=== PATIENT | female | born 1990 | race Caucasian/White ===

== ENCOUNTER 2018-02-04 10:50 | Emergency (ER) | payer SELFPAY ==
--- NOTE | 2018-02-04 13:13 | EDM.PDOCBH ---
ED HPI GENERAL MEDICAL PROBLEM - General Chief Complaint: Drug or Alcohol Abuse Stated Complaint: HEROINE DETOX SENT BY [facility] Time Seen by Provider: 02/04/18 12:08 Source of Information: Reports: Patient History Limitations: Reports: No Limitations - History of Present Illness INITIAL COMMENTS - FREE TEXT/NARRATIVE: 28-year-old female presents for a medical clearance prior to going to [facility]. Plan is that she will go to the [facility] today for treatment from [facility]. 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 Last methamphetamine use was 1 week ago. Last heroin use was Thursday night. Reports that she previously she used to inject the heroin and methamphetamine. Since she 's had multiple abscesses from these and has had multiple I&D's. Mom states that she is giving her sublingual Suboxone for withdrawals. She has been giving her the Suboxone twice a day. They acquired this off the street and no one is prescribing this to her. She is also taking Xanax for anxiety muscle cramps. Last dose of Suboxone was at 1830 last night. Last dose of Xanax was this morning. Patient is from [place], [place]. Her mom is brought her up here for help with her heroin and methamphetamine abuse. Patient states that she has an IUD in place. She was states that she was told one month ago she was seen at a clinic in [place] and was told she had a positive hCG. She has never had any follow-up with this. No vaginal bleeding or abdominal pain. Patient is denying any current pain. No chest pain, abdominal pain, vaginal bleeding, fevers, chills, nausea or vomiting. She states that she has some shortness of breath. Has not yet established with a primary care provider. No history of any chronic past medical conditions. - Related Data Allergies Allergy/AdvReac Type Severity Reaction Status Date / Time No Known Allergies Allergy Verified 02/04/18 11:03 Home Meds: Home Meds LORazepam [Ativan] 1 mg PO Q8H #12 tab 02/04/18 [Rx] cloNIDine [Catapres] 0.1 mg PO Q12HR #6 tab 02/04/18 [Rx] Past Medical History - Past Health History Medical/Surgical History: Denies Medical/Surgical History Social & Family History - Tobacco Use Smoking Status *Q: Never Smoker - Recreational Drug Use Recreational Drug Use: Yes Drug Use in Last 12 Months: Yes Recreational Drug Type: Reports: Heroin, Methamphetamine ED ROS GENERAL - Review of Systems Review Of Systems: See Below Constitutional: Denies: Fever, Chills Respiratory: Reports: Shortness of Breath ("some" ) Cardiovascular: Denies: Chest Pain GI/Abdominal: Denies: Abdominal Pain, Nausea, Vomiting : Reports: Other (denies any vaginal bleeding) ED EXAM, BEHAVIORAL HEALTH - Physical Exam Exam: See Below Exam Limited By: No Limitations General Appearance: Alert, WD/WN, No Apparent Distress Respiratory/Chest: No Respiratory Distress, Lungs Clear, Normal Breath Sounds Cardiovascular: Normal Peripheral Pulses, Regular Rate, Rhythm, No Murmur GI/Abdominal: Normal Bowel Sounds, Soft, Non-Tender Extremities: Other (minor swelling to the bilateral hands) Neurological: Alert, Normal Mood/Affect, Normal Cognition Psychiatric: Alert, Normal Affect, Normal Cognition, Normal Mood Skin Exam: Warm, Normal color, Other (multiple scars from IV drug abuse, multiple scars from abscesses, scarring from IM heroin abuse) COURSE, BEHAVIORAL HEALTH COMP - Course Vital Signs: Last Vital Signs Temp 36.2 C 02/04/18 11:00 Pulse 100 02/04/18 11:00 Resp 17 02/04/18 11:00 BP 117/84 02/04/18 11:00 Pulse Ox 100 02/04/18 11:00 Orders, Labs, Meds: Active Orders 24 hr Category Date Time Status HEPATITIS PANEL, ACUTE [REF] Stat Lab 02/04/18 12:36 Ordered Laboratory Tests 02/04/18 02/04/18 02/04/18 Range/Units 11:15 11:15 11:50 WBC 5.57 (3.98-10.04) K/mm3 RBC 5.31 H (3.98-5.22) M/mm3 Hgb 12.9 (11.2-15.7) gm/L Hct 40.6 (34.1-44.9) % MCV 76.5 L (79.4-94.8) fl MCH 24.3 L (25.6-32.2) pg MCHC 31.8 L (32.2-35.5) g/dl RDW Std Deviation 42.9 (36.4-46.3) fL Plt Count 361 (182-369) K/mm3 MPV 9.0 L (9.4-12.3) fl Neut % (Auto) 36.4 (34.0-71.1) % Lymph % (Auto) 51.9 H (19.3-51.7) % Clay % (Auto) 8.8 (4.7-12.5) % Eos % (Auto) 1.8 (0.7-5.8) Baso % (Auto) 1.1 (0.1-1.2) % Neut # (Auto) 2.03 (1.56-6.13) K/mm3 Lymph # (Auto) 2.89 (1.18-3.74) K/mm3 Clay # (Auto) 0.49 H (0.24-0.36) K/mm3 Eos # (Auto) 0.10 (0.04-0.36) K/mm3 Baso # (Auto) 0.06 (0.01-0.08) K/mm3 Manual Slide Review Abnormal smear Sodium (136-145) mEq/L Potassium (3.5-5.1) mEq/L Chloride (98-107) mEq/L Carbon Dioxide (21-32) mEq/L Anion Gap (5-15) BUN (7-18) mg/dL Creatinine (0.55-1.02) mg/dL Est Cr Clr Drug Dosing mL/min Estimated GFR (MDRD) (>60) mL/min BUN/Creatinine Ratio (14-18) Glucose (74-106) mg/dL Calcium (8.5-10.1) mg/dL Total Bilirubin (0.2-1.0) mg/dL AST (15-37) U/L ALT (14-59) U/L Alkaline Phosphatase (46-116) U/L Total Protein (6.4-8.2) g/dl Albumin (3.4-5.0) g/dl Globulin gm/dL Albumin/Globulin Ratio (1-2) Urine HCG, Qual Negative (NEGATIVE) Urine Opiates Screen Negative (NEGATIVE) Ur Buprenorphine Scrn Presumptive positive H (NEGATIVE) Ur Oxycodone Screen Negative (NEGATIVE) Urine Methadone Screen Negative (NEGATIVE) Ur Propoxyphene Screen Negative (NEGATIVE) Ur Barbiturates Screen Negative (NEGATIVE) Ur Tricyclics Screen Presumptive positive H (NEGATIVE) Ur Phencyclidine Scrn Negative (NEGATIVE) Ur Amphetamine Screen Negative (NEGATIVE) U Methamphetamines Scrn Negative (NEGATIVE) U Benzodiazepines Scrn Presumptive positive H (NEGATIVE) U Cocaine Metab Screen Negative (NEGATIVE) U Marijuana (THC) Screen Presumptive positive H (NEGATIVE) Ethyl Alcohol (0.00) gm% 02/04/18 Range/Units 11:50 WBC (3.98-10.04) K/mm3 RBC (3.98-5.22) M/mm3 Hgb (11.2-15.7) gm/L Hct (34.1-44.9) % MCV (79.4-94.8) fl MCH (25.6-32.2) pg MCHC (32.2-35.5) g/dl RDW Std Deviation (36.4-46.3) fL Plt Count (182-369) K/mm3 MPV (9.4-12.3) fl Neut % (Auto) (34.0-71.1) % Lymph % (Auto) (19.3-51.7) % Clay % (Auto) (4.7-12.5) % Eos % (Auto) (0.7-5.8) Baso % (Auto) (0.1-1.2) % Neut # (Auto) (1.56-6.13) K/mm3 Lymph # (Auto) (1.18-3.74) K/mm3 Clay # (Auto) (0.24-0.36) K/mm3 Eos # (Auto) (0.04-0.36) K/mm3 Baso # (Auto) (0.01-0.08) K/mm3 Manual Slide Review Sodium 137 (136-145) mEq/L Potassium 3.7 (3.5-5.1) mEq/L Chloride 101 (98-107) mEq/L Carbon Dioxide 31 (21-32) mEq/L Anion Gap 8.7 (5-15) BUN 7 (7-18) mg/dL Creatinine 0.6 (0.55-1.02) mg/dL Est Cr Clr Drug Dosing 115.47 mL/min Estimated GFR (MDRD) > 60 (>60) mL/min BUN/Creatinine Ratio 11.7 L (14-18) Glucose 126 H (74-106) mg/dL Calcium 9.2 (8.5-10.1) mg/dL Total Bilirubin 0.3 (0.2-1.0) mg/dL AST 208 H (15-37) U/L ALT 245 H (14-59) U/L Alkaline Phosphatase 194 H (46-116) U/L Total Protein 8.4 H (6.4-8.2) g/dl Albumin 3.0 L (3.4-5.0) g/dl Globulin 5.4 gm/dL Albumin/Globulin Ratio 0.6 L (1-2) Urine HCG, Qual (NEGATIVE) Urine Opiates Screen (NEGATIVE) Ur Buprenorphine Scrn (NEGATIVE) Ur Oxycodone Screen (NEGATIVE) Urine Methadone Screen (NEGATIVE) Ur Propoxyphene Screen (NEGATIVE) Ur Barbiturates Screen (NEGATIVE) Ur Tricyclics Screen (NEGATIVE) Ur Phencyclidine Scrn (NEGATIVE) Ur Amphetamine Screen (NEGATIVE) U Methamphetamines Scrn (NEGATIVE) U Benzodiazepines Scrn (NEGATIVE) U Cocaine Metab Screen (NEGATIVE) U Marijuana (THC) Screen (NEGATIVE) Ethyl Alcohol 0.00 (0.00) gm% Re-Assessment/Re-Exam: 13:10 I spoke with [facility] human services. Plan will be to discharge her from the ER and she is to go directly to [facility] for admission. Warned she will have her ativan and clonidine counted upon her arrival. 15:00 [facility] has called. She presented to the [facility] bed in a timely fashion, however, she was there for about 10 minutes and decided to leave with her mother. [facility] did not allow her to take the ativan and clonidine that I prescribed. I agreed that she can not have this as long as she is not at the [facility]. Medical Clearance: 02/04/18 13:02 Patient is medically cleared to got to the [facility] for care. Informed of elevated liver enzymes. Hepatitis panel pending. Encouraged follow- up with family med. Discharge vs Psych Eval/Treatment:: 02/04/18 13:13 Will discharge with instructions to go directly to the [facility] after picking up ativan and clonidine. Departure - Departure Time of Disposition: 13:13 Disposition: DC/Tfer to In Rehab Fac 62 Condition: Fair Clinical Impression: Elevated transaminase level, Heroin abuse, Methamphetamine abuse - Discharge Information Prescriptions: cloNIDine [Catapres] 0.1 mg PO Q12HR #6 tab LORazepam [Ativan] 1 mg PO Q8H #12 tab Instructions: Finding Treatment for Addiction Referrals: PCP,None [Primary Care Provider] - Ashley Dykes MD [Physician] - Additional Instructions: Clonidine 1 tab 2 times a day for 3 days. Ativan 1 tab 3 times a day 2 days then twice a day for 3 days. Follow-up with family medicine as soon as you able to to further evaluate your elevated transaminase levels. Recommend Dr. Dykes at the [facility]. Call [phone] to schedule with her. If sure you're drinking plenty of fluids with the clonidine can lower your blood pressure. If you like to pursue Suboxone treatment; a list has Been provided for providers in the area. Please return to the ER if your symptoms change or worsen. - My Orders Last 24 Hours: My Active Orders 02/04/18 12:36 HEPATITIS PANEL, ACUTE [REF] Stat - Assessment/Plan Last 24 Hours: My Active Orders 02/04/18 12:36 HEPATITIS PANEL, ACUTE [REF] Stat
== END 2018-02-04 14:15 ==
LOC: JD.ED 10:50
DX: F15.10 Other stimulant abuse, uncomplicated (principal); F11.10 Opioid abuse, uncomplicated; R79.89 Other specified abnormal findings of blood chemistry
CPT/HCPCS: 36415; 80053; 80306; 81025; 85025; 99283; G0480; 80074; 99284

== ENCOUNTER 2018-06-22 14:33 | Emergency (ER) | payer SELFPAY ==
--- NOTE | 2018-06-22 16:09 | EDM.PDOC ---
ED HPI GENERAL MEDICAL PROBLEM - General Chief Complaint: [employer] Problem Stated Complaint: ? retained tampon Time Seen by Provider: 06/22/18 15:48 Source of Information: Reports: Patient History Limitations: Reports: No Limitations - History of Present Illness INITIAL COMMENTS - FREE TEXT/NARRATIVE: 28-year-old female presents for evaluation and treatment of possibly a retained tampon. Patient reports 2 days ago she started experiencing lower abdominal cramping. She also reports a strong vaginal odor and vaginal discharge. She states that she started her menstrual cycle 2 days ago. States that this menstrual cycle is like her normal menstrual cycle, not heavier than normal. She denies any dysuria, fevers, chills, nausea or vomiting. Patient questions if the tampon has been stuck for the last month, since her last menstrual cycle. Patient has an IUD in place, it is a 10 year IUD. Placed about 6 years . Patient is sexually active. Patient reports she has not had STD screening in several years. Lower Abdominal Pain Score (Numeric/FACES): 4 - Related Data Allergies Allergy/AdvReac Type Severity Reaction Status Date / Time No Known Allergies Allergy Verified 06/22/18 15:26 Home Meds: Home Meds Doxycycline [Vibramycin] 100 mg PO BID #20 cap 06/22/18 [Rx] Past Medical History - Past Health History Medical/Surgical History: Denies Medical/Surgical History Psychiatric History: Reports: Addiction Other Psychiatric History: Meth and heroin past use - Past Surgical History GI Surgical History: Reports: Appendectomy Female Surgical History: Reports: Breast Reduction Social & Family History - Family History Family Medical History: Noncontributory - Tobacco Use Smoking Status *Q: Never Smoker - Recreational Drug Use Recreational Drug Use: Yes Drug Use in Last 12 Months: Yes Recreational Drug Type: Reports: Heroin, Methamphetamine Recreational Drug Use Frequency: Daily Recreational Drug Last Use: 06/04/18 ED ROS GENERAL - Review of Systems Review Of Systems: See Below Constitutional: Denies: Fever, Chills GI/Abdominal: Denies: Nausea, Vomiting : Reports: Pain (reports pelvic cramping, lower abdominal cramping), Other ( reports vaginal discharge, reports a foul vaginal odor). Denies: Dysuria ED EXAM, RENAL/ - Physical Exam Exam: See Below Exam Limited By: No Limitations General Appearance: Alert, WD/WN, No Apparent Distress Respiratory/Chest: No Respiratory Distress (Female) Exam: Other (cervix is swollen, friable, irritated; IUD strings not visualized; retained tampon removed, found next to cervix ) Neurological: Alert, Oriented, Normal Cognition Psychiatric: Normal Affect, Normal Mood Skin Exam: Warm, Dry, Normal Color Course - Vital Signs Last Recorded V/S: Last Vital Signs Temp 98.0 F 06/22/18 15:23 Pulse 111 H 06/22/18 15:23 Resp 16 06/22/18 15:23 BP 124/79 06/22/18 15:23 Pulse Ox 100 06/22/18 15:23 - Orders/Labs/Meds Labs: Laboratory Tests 06/22/18 06/22/18 Range/Units 16:08 16:30 Urine Color Yellow (Yellow) Urine Appearance Clear (Clear) Urine pH 7.0 (5.0-8.0) Ur Specific Roy 1.025 (1.005-1.030) Urine Protein Negative (Negative) Urine Glucose (UA) Negative (Negative) Urine Ketones Negative (Negative) Urine Occult Blood Negative (Negative) Urine Nitrite Negative (Negative) Urine Bilirubin Negative (Negative) Urine Urobilinogen 0.2 (0.2-1.0) Ur Leukocyte Esterase Negative (Negative) Urine RBC 0-5 (0-5) /hpf Urine WBC Not seen (0-5) /hpf Ur Epithelial Cells 0-5 (0-5) /hpf Urine Bacteria Not seen (FEW) /hpf Urine Mucus Not seen (FEW) /hpf C trachomatis DNA (PCR) Not detected N gonorrhoeae DNA (PCR) Not detected - Re-Assessments/Exams Free Text/Narrative Re-Assessment/Exam: 06/22/18 16:28 retained tampon found next to the cervix. Cervix is swollen with abrasions. Tampon foul swelling. Will put on doxyxycline due to questionable infection. Recommend follow-up with ob. Awaiting wet prep and gc/chlamydia. Will call with results if are positive. Recommend community action for affordable STD testing. Recommend follow-up with Ob in 1 week. Discharge instructions as documented. 06/22/18 18:32 wet prep and GC/chlamydia are negative. Departure - Departure Time of Disposition: 16:33 Disposition: Home, Self-Care 01 Condition: Fair Clinical Impression: Retained tampon Qualifiers: Encounter type: initial encounter Qualified Code(s): T19.2XXA - Foreign body in vulva and vagina, initial encounter - Discharge Information *PRESCRIPTION DRUG MONITORING PROGRAM REVIEWED*: No *COPY OF PRESCRIPTION DRUG MONITORING REPORT IN PATIENT COOPER: No Prescriptions: Doxycycline [Vibramycin] 100 mg PO BID #20 cap Instructions: Vaginal Foreign Body, [id number] Referrals: PCP,None [Primary Care Provider] - Jus Wu MD [Physician] - Forms: ED Department Discharge Additional Instructions: Doxycycline 1 cap Twice a day for 10 days. This medication can cause photosensitivity. Make sure you avoid the sun or wear sunscreen if you are in the sun. Follow-up with OB within one week for rec of your symptoms. Recommend having her cervix reevaluated due to the inflammation as well as to check to make sure you're IUD strings are in place. Recommend Dr. Wu or Dr. Mojica at the [facility]. Call [phone] to schedule with one of these providers. [id number] Tylenol and Motrin as needed for cramping and discomfort. Please return to the ER if your symptoms change or worsen.
[2018-06-22 18:15] LABS: C. TRACHOMATIS BY PCR NOT DETECTED; N. GONORRHOEAE BY PCR NOT DETECTED
== END 2018-06-22 16:57 | disposition home or self-care (01) ==
LOC: JD.ED 14:33
DX: T19.2XXA Foreign body in vulva and vagina, initial encounter (principal)
CPT/HCPCS: 81001; 87210; 87491; 87591; 87808; 99283; 99284